=== PATIENT | female | born 1935 | race Caucasian/White ===

== ENCOUNTER 2018-05-23 06:00 | Day surgery (SDC) | payer OTHER ==
[~2018-05-23 06:00] MED LIST: FENOFIBRATE160 MG PO; FORTAMET1000 MG PO; LAMISIL250 MG PO; LANTUS SOL100 UNIT/1; ZESTRIL5 MG PO
== END 2018-05-23 14:00 | disposition home or self-care (01) ==
LOC: CIR.AMB 06:00
DX: D12.9 Benign neoplasm of anus and anal canal (principal); K64.2 Third degree hemorrhoids